=== PATIENT | female | born 1980 | race Caucasian/White ===

== ENCOUNTER 2020-07-05 22:18 | Inpatient (IN) | payer OTHER ==
--- NOTE | 2020-07-05 22:29 | ED Physician Documentation ---
PD HPI ABD PAIN - Stated complaint Stated Complaint: RT SIDE FLANK PX - Chief complaint Chief Complaint: UTI - History obtained from History obtained from: Patient - History of Present Illness Timing - onset: Enter time (15:00), Today Timing - duration: Hours Timing - details: Gradual onset, Constant Pain level now: 4 Quality: Pain Location: RLQ Radiation: Right flank Improved by: Laying still Worsened by: Moving, Palpation Associated symptoms: Nausea. No: Fever, Vomiting, Diarrhea, Constipation Similar symptoms before: Has not had sx before Recently seen: Not recently seen Review of Systems Constitutional: reports: Chills. denies: Fever, Sweats Eyes: reports: Reviewed and negative Ears: reports: Reviewed and negative Nose: reports: Reviewed and negative Throat: reports: Reviewed and negative Cardiac: reports: Reviewed and negative Respiratory: reports: Reviewed and negative GI: reports: Abdominal Pain, Abdominal Swelling (subjective (feels bloated)), Nausea. denies: Vomiting, Constipation, Diarrhea : denies: Dysuria, Frequency, Now EGA Skin: reports: Reviewed and negative Musculoskeletal: reports: Reviewed and negative Neurologic: denies: Headache PD PAST MEDICAL HISTORY - Past Medical History Past Medical History: No - Past Surgical History Past Surgical History: No - Present Medications Home Medications: Ambulatory Orders Medication Instructions Recorded Confirmed Citalopram [CeleXA] 10 mg PO DAILY 07/05/20 07/05/20 - Allergies Allergies/Adverse Reactions: Allergies Allergy/AdvReac Type Severity Reaction Status Date / Time No Known Drug Allergies Allergy Verified 07/05/20 22:30 - Living Situation Living Arrangement: reports: At home - Social History Does the pt smoke?: No PD ED PE NORMAL - Vitals Vital signs reviewed: Yes - General General: Alert and oriented X 3, No acute distress, Well developed/nourished - HEENT HEENT: Moist mucous membranes - Neck Neck: Supple, no meningeal sign - Cardiac Cardiac: RRR, No murmur, No gallop, No rub - Respiratory Respiratory: No respiratory distress, Clear bilaterally - Abdomen Abdomen: Soft, Non distended - Back Back: No CVA TTP - Derm Derm: Normal color, Warm and dry, No rash - Extremities Extremities: No edema PD ED PE EXPANDED - Abdomen Abdomen: Tender to palpation, RLQ Results - Vitals Vitals: Vital Signs - 24 hr 07/05/20 07/06/20 22:27 00:25 Temperature 37.2 C Heart Rate 99 80 Respiratory 17 Rate Blood Pressure 126/83 H 130/88 H O2 Saturation 98 99 Oxygen O2 Source Room air - Labs Labs: Laboratory Tests 07/05/20 07/05/20 07/05/20 22:29 23:09 23:09 WBC 12.3 H RBC 4.76 Hgb 14.7 Hct 44.9 MCV 94.3 MCH 30.9 MCHC 32.7 RDW 12.4 Plt Count 249 MPV 10.2 Neut # (Auto) 9.4 H Lymph # (Auto) 1.8 [place] # (Auto) 0.9 Eos # (Auto) 0.2 Baso # (Auto) 0.0 Absolute Nucleated RBC 0.00 Nucleated RBC % 0.0 Sodium 138 Potassium 3.1 L Chloride 104 Carbon Dioxide 26 Anion Gap 8.0 BUN 10 Creatinine 0.7 Estimated GFR (MDRD) 92 Glucose 102 H Calcium 8.9 Total Bilirubin 0.5 AST 20 ALT 18 Alkaline Phosphatase 74 Total Protein 7.5 Albumin 4.7 Globulin 2.8 Albumin/Globulin Ratio 1.7 Lipase 24 Urine Color YELLOW Urine Clarity CLEAR Urine pH 6.0 Ur Specific [place] 1.025 Urine Protein NEGATIVE Urine Glucose (UA) NEGATIVE Urine Ketones NEGATIVE Urine Occult Blood TRACE-INTA Urine Nitrite NEGATIVE Urine Bilirubin NEGATIVE Urine Urobilinogen 0.2 (NORMAL) Ur Leukocyte Esterase NEGATIVE Ur Microscopic Review NOT INDICATED Urine Culture Comments NOT INDICATED Urine HCG, Qual NEGATIVE - Rads (name of study) CT A/P with IV contrast Radiology: Prelim report reviewed, See rad report PD MEDICAL DECISION MAKING - ED course Complexity details: reviewed results, re-evaluated patient, considered differential, d/w patient Departure - Departure Disposition: [facility] DC/Xfer Clinical Impression: Appendicitis Condition: Good Discharge Date/Time: 07/06/20 02:36
[2020-07-05] MEDS ORDERED: SODIUM CHLORIDE 0.9% 500 ML IV STA (23:03)
[2020-07-05] MEDS ORDERED: SODIUM CHLORIDE 0.9% 1,000 ML IV STA (23:03)
[2020-07-05 23:28] LABS: BASOPHILS % (AUTO) 0.2 %; EOSINOPHILS # (AUTO) 0.2 10^3/uL (0.0-0.7); EOSINOPHILS % (AUTO) 1.3 %; HGB - HEMOGLOBIN 14.7 g/dL (12.0-16.0); LYMPHOCYTES # (AUTO) 1.8 10^3/uL (1.5-3.5); LYMPHOCYTES % (AUTO) 14.4 %; MEAN CORPUSCULAR HEMOGLOBIN 30.9 pg (27.0-31.0); MEAN CORPUSCULAR HGB CONC 32.7 g/dL (32.0-36.0); MEAN CORPUSCULAR VOLUME 94.3 fL (81.0-99.0); MEAN PLATELET VOLUME 10.2 fL (7.9-10.8); MONOCYTES # (AUTO) 0.9 10^3/uL (0.0-1.0); MONOCYTES % (AUTO) 7.2 %; NEUTROPHILS # (AUTO) 9.4 10^3/uL (1.5-6.6); NEUTROPHILS % (AUTO) 76.4 %; PLT - PLATELET COUNT 249 10^3/uL (130-450); RED BLOOD COUNT 4.76 10^6/uL (4.20-5.40); RED CELL DISTRIBUTION WIDTH 12.4 % (12.0-15.0); WHITE BLOOD COUNT 12.3 x10^3/uL (4.8-10.8)
[2020-07-05 23:31] LABS: BILIRUBIN,URINE NEGATIVE (NEGATIVE); GLUCOSE, URINE (UA) NEGATIVE (NEGATIVE); KETONES,URINE (UA) NEGATIVE (NEGATIVE); LEUKOCYTE ESTERASE, URINE NEGATIVE (NEGATIVE); NITRITE,URINE NEGATIVE (NEGATIVE); OCCULT BLOOD,URINE TRACE-INTA (NEGATIVE); PROTEIN,URINE NEGATIVE (NEGATIVE); UROBILINOGEN,URINE 0.2 (NORMAL) E.U./dL (NORMAL)
[2020-07-05 23:33] LABS: CLARITY,URINE CLEAR (CLEAR)
[2020-07-05 23:34] LABS: HCG UR QUAL NEGATIVE
[2020-07-05 23:57] LABS: ALBUMIN 4.7 g/dL (3.2-5.5); ALBUMIN/GLOBULIN RATIO 1.7 (1.0-2.2); BILIRUBIN,TOTAL 0.5 mg/dL (0.2-1.0); CALCIUM 8.9 mg/dL (8.5-10.3); CREATININE 0.7 mg/dL (0.4-1.0); TOTAL PROTEIN 7.5 g/dL (6.7-8.2)
[2020-07-06] MEDS ORDERED: IOVERSOL 320 100 ML VIAL IVP ONE ×2 (00:15→00:43)
[2020-07-06] MEDS ORDERED: ONDANSETRON 4 MG/2 ML VIAL IVP PRN ×3 (01:34→12:00)
[2020-07-06] MEDS ORDERED: SODIUM CHLORIDE FLUSH 0.9% 10 ML SYRINGE IVP PRN (01:34)
[2020-07-06] MEDS ORDERED: ONDANSETRON ODT 4 MG TABLET TL PRN (01:34)
[2020-07-06] MEDS ORDERED: ACETAMINOPHEN 325 MG TABLET PO PRN (01:34)
[2020-07-06] MEDS ORDERED: cefTRIAXone 2 GM in SODIUM CHLORIDE 0.9% MINIBAG 100 ML IV STA (01:40)
[2020-07-06] MEDS: LACTATED RINGERS 1,000 ML IV SCH ×3 (02:51→20:02)
[2020-07-06] MEDS: HYDROmorphone 0.5 MG/0.5 ML SYRINGE IVP PRN ×2 (03:34→08:58)
[2020-07-06] MEDS: metroNIDAZOLE 500 MG/100 ML 500 MG/100 ML BAG IV SCH ×3 (03:34→18:02)
--- NOTE | 2020-07-06 07:34 | CT Report ---
PROCEDURE: Abdomen/Pelvis W INDICATIONS: RLQ pain, tenderness CONTRAST: IV CONTRAST: Optiray 320 ml: 100 PO CONTRAST: *NO PO CONTRAST TECHNIQUE: After the administration of weight appropriate dose of intravenous contrast, 5 mm thick sections acqu ired from the diaphragms to the symphysis. 5 mm thick coronal and sagittal reformats were acquired. For radiation dose reduction, the following was used: automated exposure control, adjustment of mA and/or kV according to patient size. COMPARISON: None. FINDINGS: Image quality: Excellent. ABDOMEN: Lung bases: Lung bases are clear. Heart size is normal. Bilateral breast implants noted. Solid organs: Liver and spleen are normal in size and enhancement. Gallbladder is unremarkable Angel iary system is non dilated. Pancreas enhances normally. No adrenal nodules. Kidneys demonstrate no rmal size and enhancement, without hydronephrosis. Peritoneum and bowel: Bowel loops demonstrate normal wall thickness and caliber. The appendix is en larged and dilated up to 10 mm in diameter with periappendiceal stranding. No evidence for perforatio n or adjacent abscess formation. No free fluid or air. Nodes and vessels: No retroperitoneal or mesenteric adenopathy by size criteria. Aorta and inferior vena cava are normal in size. Miscellaneous: Small fat-containing umbilical hernia without acute inflammation. PELVIS: Genitourinary: Bladder wall thickness is normal. IUD noted in the endometrial cavity. Miscellaneous: No inguinal hernias or adenopathy. Bones: No suspicious bony lesions. No vertebral body compression fractures. IMPRESSION: Acute appendicitis without evidence for perforation or abscess formation. No significant discrepancy with initial interpretation by overnight radiologist. Reviewed by: Selvin Luis MD on 07/06/2020 7:32 AM PDT Approved by: Selvin Luis MD on 07/06/2020 7:32 AM PDT Station ID: [id number]
[2020-07-06] MEDS: SODIUM CHLORIDE FLUSH 0.9% 10 ML SYRINGE IVP SCH ×3 (09:00→23:45)
--- NOTE | 2020-07-06 09:45 | HISTORY & PHYSICAL EXAMINATION ---
Chief Complaint - Chief Complaint Chief Complaint: abdominal pain since 3 yesteray Abdominal Pain HPI - History Obtained From History obtained from: Patient Exam limitations: No limitations - History of Present Illness Severity at the worst: Moderate Pain Quality: Dull, Aching Context-Pain started w/: Rest Timing: Gradual onset Duration: Hours: (18 hours) Improved with: Rest HPI Comment/Other: gradual and progressive abdominal pain and tenderness now localized to the right lower quadrant PMH/PSH - Past Medical History Cardiovascular: positive: None Respiratory: positive: None Neuro: positive: None Endocrine/Autoimmune: positive: None GI: positive: None : positive: None Psych: positive: Depression Musculoskeletal: positive: None Derm: positive: None - Past Surgical History /CLIENT EVALUATOR: positive: Breast implants Social & Family Hx - Social History Does the pt smoke?: No Smoking Status: Former smoker Does the pt drink ETOH?: Yes Does the pt have substance abuse?: No Substance Use and Type: Marijuana Meds/Allgy - Home Medications Home Medications: Ambulatory Orders Medication Instructions Recorded Confirmed Citalopram [CeleXA] 10 mg PO DAILY 07/05/20 07/05/20 - Allergies Allergies/Adverse Reactions: Allergies Allergy/AdvReac Type Severity Reaction Status Date / Time No Known Drug Allergies Allergy Verified 07/05/20 22:30 Review of Systems - Other Findings Other Findings: 10 pt ros as above otherwise unremarkable Exam - Vital Signs Reviewed Vital Signs: Yes Vital Signs: Vital Signs x48h Temp Pulse Pulse Resp BP BP Pulse Ox 07/06/20 08:00 36.7 C 64 20 94/53 L 97 07/06/20 02:43 37.1 C 79 16 128/87 H 98 07/06/20 02:03 37.3 C 84 16 122/85 H 98 07/06/20 01:47 37.2 C 77 18 122/85 H 97 - Physical Exam General Appearance: positive: No acute distress, Alert Eyes Bilateral: positive: Normal inspection, PERRL, EOMI ENT: positive: No signs of dehydration Neck: positive: No JVD Respiratory: positive: No respiratory distress Abdomen: positive: No distention, Tenderness (rlq) Results - Lab Results Fish Bones: 07/05/20 23:09 07/05/20 23:09 Other Lab Results: Lab Results x24hrs 07/05/20 07/05/20 07/05/20 Range/Units 23:09 23:09 22:29 WBC 12.3 H (4.8-10.8) x10^3/uL RBC 4.76 (4.20-5.40) 10^6/uL Hgb 14.7 (12.0-16.0) g/dL Hct 44.9 (37.0-47.0) % MCV 94.3 (81.0-99.0) fL MCH 30.9 (27.0-31.0) pg MCHC 32.7 (32.0-36.0) g/dL RDW 12.4 (12.0-15.0) % Plt Count 249 (130-450) 10^3/uL MPV 10.2 (7.9-10.8) fL Neut # (Auto) 9.4 H (1.5-6.6) 10^3/uL Lymph # (Auto) 1.8 (1.5-3.5) 10^3/uL [place] # (Auto) 0.9 (0.0-1.0) 10^3/uL Eos # (Auto) 0.2 (0.0-0.7) 10^3/uL Baso # (Auto) 0.0 (0.0-0.1) 10^3/uL Absolute Nucleated RBC 0.00 x10^3/uL Nucleated RBC % 0.0 /100WBC Sodium 138 (135-145) mmol/L Potassium 3.1 L (3.5-5.0) mmol/L Chloride 104 (101-111) mmol/L Carbon Dioxide 26 (21-32) mmol/L Anion Gap 8.0 (6-13) BUN 10 (6-20) mg/dL Creatinine 0.7 (0.4-1.0) mg/dL Estimated GFR (MDRD) 92 (>89) Glucose 102 H (70-100) mg/dL Calcium 8.9 (8.5-10.3) mg/dL Total Bilirubin 0.5 (0.2-1.0) mg/dL AST 20 (10-42) IU/L ALT 18 (10-60) IU/L Alkaline Phosphatase 74 (42-121) IU/L Total Protein 7.5 (6.7-8.2) g/dL Albumin 4.7 (3.2-5.5) g/dL Globulin 2.8 (2.1-4.2) g/dL Albumin/Globulin Ratio 1.7 (1.0-2.2) Lipase 24 (22-51) U/L Urine Color YELLOW Urine Clarity CLEAR (CLEAR) Urine pH 6.0 (5.0-7.5) PH Ur Specific [place] 1.025 (1.002-1.030) Urine Protein NEGATIVE (NEGATIVE) mg/dL Urine Glucose (UA) NEGATIVE (NEGATIVE) mg/dL Urine Ketones NEGATIVE (NEGATIVE) mg/dL Urine Occult Blood TRACE-INTA (NEGATIVE) Urine Nitrite NEGATIVE (NEGATIVE) Urine Bilirubin NEGATIVE (NEGATIVE) Urine Urobilinogen 0.2 (NORMAL) (NORMAL) E.U./dL Ur Leukocyte Esterase NEGATIVE (NEGATIVE) Ur Microscopic Review NOT INDICATED Urine Culture Comments NOT INDICATED Urine HCG, Qual NEGATIVE - Diagnostic Imaging Results Diagnostic Imaging Results: positive: Read independently (appendicitis) Impression/Plan - Problem List Problem List: appendicitis. plan lap appendectomy parq held and consent obtained
[2020-07-06] MEDS ORDERED: BUPIVACAINE 0.25%-EPI 1:200000 PF 30 ML VIAL ONE (09:48)
--- NOTE | 2020-07-06 09:48 | ANESTHESIA ---
Pre-Anesthesia VS, & Labs - Diagnosis Appendicitis - Procedure Lap Appy Vital Signs: Temp Pulse Resp BP Pulse Ox 36.7 C 64 20 94/53 L 97 07/06/20 08:00 07/06/20 08:00 07/06/20 08:00 07/06/20 08:00 07/06/20 08:00 Height: 5 ft 5 in Weight (kg): 87.5 kg Body Mass Index: 32.1 BMI Classification: Obese - NPO >8 hours - Is Patient ?: No - Lab Results Current Lab Results: Laboratory Tests 07/05/20 23:09: Sodium 138, Potassium 3.1 L, Chloride 104, Carbon Dioxide 26, Anion Gap 8.0, BUN 10, Creatinine 0.7, Estimated GFR (MDRD) 92, Glucose 102 H, Calcium 8.9, Total Bilirubin 0.5, AST 20, ALT 18, Alkaline Phosphatase 74, Total Protein 7.5, Albumin 4.7, Globulin 2.8, Albumin/Globulin Ratio 1.7, Lipase 24 07/05/20 23:09: WBC 12.3 H, RBC 4.76, Hgb 14.7, Hct 44.9, MCV 94.3, MCH 30.9, MCHC 32.7, RDW 12.4, Plt Count 249, MPV 10.2, Neut # (Auto) 9.4 H, Lymph # (Auto) 1.8, [place] # (Auto) 0.9, Eos # (Auto) 0.2, Baso # (Auto) 0.0, Absolute Nucleated RBC 0.00, Nucleated RBC % 0.0 Fish Bones: 07/05/20 23:09 07/05/20 23:09 Home Medications and Allergies Home Medications: Ambulatory Orders Citalopram [CeleXA] 10 mg PO DAILY 07/05/20 Active Medications Acetaminophen (Tylenol) 650 mg PO Q4HR PRN PRN Reason: Pain 1 to 4 Hydromorphone HCl (Dilaudid Inj Syringe) 0.5 mg IVP Q2H PRN PRN Reason: Pain 8 to 10 Last Admin: 07/06/20 08:58 Dose: 0.5 mg Documented by: Lactated Ringer's (Lr) 1,000 mls @ 100 mls/hr IV .Q10H SUHAS Last Admin: 07/06/20 02:51 Dose: 100 mls/hr Documented by: Metronidazole (Flagyl 500 Mg/100 Ml) 500 mg in 100 mls @ 100 mls/hr IV Q8H SUHAS Last Admin: 07/06/20 09:02 Dose: 100 mls/hr Documented by: Ondansetron HCl (Zofran Odt) 4 mg TL Q6HR PRN PRN Reason: Nausea / Vomiting Ondansetron HCl (Zofran Inj) 4 mg IVP Q6HR PRN PRN Reason: Nausea / Vomiting Last Admin: 07/06/20 05:01 Dose: 4 mg Documented by: Sodium Chloride (Normal Saline Flush 0.9%) 10 ml IVP PRN PRN PRN Reason: NEEDED PER PROVIDER ORDERS Sodium Chloride (Normal Saline Flush 0.9%) 10 ml IVP 0100,0900,1700 [facility] Citalopram [CeleXA] 10 mg PO DAILY 07/05/20 Allergies/Adverse Reactions: Allergies Allergy/AdvReac Type Severity Reaction Status Date / Time No Known Drug Allergies Allergy Verified 07/05/20 22:30 Anes History & Medical History - Anesthetic History Anesthesia Complications: reports: No previous complications Family history of Anesthesia Complications: Denies Family history of Malignant Hyperthermia: Denies - Medical History Cardiovascular: reports: None Pulmonary: reports: None Gastrointestinal: reports: None Urinary: reports: None Neuro: reports: None Musculoskeletal: reports: None Endocrine/Autoimmune: reports: None Blood Disorders: reports: None Skin: reports: None Smoking Status: Former smoker Psychosocial: reports: Depression (Mild) History of Cancer?: No - Surgical History General: Other (Breast augmentation) Eyes Ears Nose Throat (EENT): Tonsil/Adenoidectomy (As child) Gynecologic: section, Breast implants Exam General: Alert Dental: WNL Mouth Opening: Greater than 4 Fingerbreadths Neck Mobility: Normal Mallampati classification: II Thyromental Distance: 4-6 cm Respiratory: Lungs clear, Normal breath sounds, No respiratory distress, No accessory muscle use Cardiovascular: Regular rate, Normal S1, Normal S2, No murmurs Abdomen: Normal bowel sounds, Soft, No tenderness, No hepatospenomegaly, No masses Extremities: No clubbing, No cyanosis, No edema, Normal pulses, No tenderness/swelling Neurological: Normal gait, Normal speech, Strength at 5/5 X4 ext, Normal tone, Sensation intact, Cranial nerves 3-12 NL, Reflexes 2+ Mental/Cognitive Status: Alert/Oriented X3, Normal for patient Cognitive Status: Within normal limits Plan Anesthesia Type: General Consent for Procedure(s) Verified and Reviewed: Yes Code Status: Attempt Resuscitation ASA classification: 1-Healthy patient Is this case an emergency?: Yes (Consent signed)
[2020-07-06] MEDS ORDERED: ePHEDrine 50 MG/ML VIAL IVP PRN (09:49)
[2020-07-06] MEDS ORDERED: METOCLOPRAMIDE 10 MG/2 ML VIAL IVP PRN (09:49)
[2020-07-06] MEDS ORDERED: NALOXONE 0.4 MG/ML VIAL IVP PRN (09:49)
[2020-07-06] MEDS ORDERED: ATROPINE ABBOJECT 1 MG/10 ML SYRINGE IVP PRN (09:49)
[2020-07-06] MEDS ORDERED: HYDROmorphone 0.5 MG/0.5 ML SYRINGE IVP PRN (09:49)
[2020-07-06] MEDS ORDERED: fentaNYL 100 MCG/2 ML VIAL IVP PRN (09:49)
[2020-07-06] MEDS ORDERED: MORPHINE 2 MG/ML CARPUJECT IVP PRN (09:49)
[2020-07-06] MEDS ORDERED: DEXAMETHASONE 4 MG/ML VIAL IVP ONE (09:57)
[2020-07-06] MEDS ORDERED: LIDOCAINE-MPF 2% 5 ML VIAL IM ONE (09:57)
[2020-07-06] MEDS ORDERED: KETAMINE 500 MG/10 ML VIAL IVP ONE (09:57)
[2020-07-06] MEDS ORDERED: MIDAZOLAM 2 MG/2 ML VIAL IVP ONE (09:57)
[2020-07-06] MEDS ORDERED: fentaNYL 100 MCG/2 ML VIAL IVP ONE (09:57)
[2020-07-06] MEDS ORDERED: SUCCINYLCHOLINE 200 MG/10 ML VIAL IVP ONE (09:57)
[2020-07-06] MEDS ORDERED: ONDANSETRON 4 MG/2 ML VIAL IVP ONE (09:57)
[2020-07-06] MEDS ORDERED: PROPOFOL 200 MG/20 ML VIAL IVP ONE (09:57)
[2020-07-06] MEDS ORDERED: LACTATED RINGERS 1,000 ML IV SCH (10:00)
[2020-07-06] MEDS ORDERED: BUPIVACAINE 0.25%-EPI 1:200000 PF 30 ML VIAL SUBQ ONE (11:39)
[2020-07-06] MEDS ORDERED: LACTATED RINGERS 1,000 ML IV ONE ×2 (12:02)
--- NOTE | 2020-07-06 12:08 | OPERATIVE REPORT ---
Operative Report - General Admit Date: 07/06/20 Procedure Date: 07/06/20 Planned Procedure: lap appendectomy Pre-Op Diagnosis: appendicitis Procedure Performed: lap appendectomy Post Op Diagnosis: same - Procedure Note Primary Surgeon: michelle stoll Anesthesia Technique: General ET tube Estimated Blood Loss (mL): 50 Findings: appendictis, suppurative with small amount thin dark, cloudy fluid in pelvis Complications: none
--- NOTE | 2020-07-06 12:32 | ANESTHESIA POST OP EVALUATION ---
Anesthesia Post Eval - Post Anesthesia Eval Vitals: Last Vital Signs Temp 36.2 C L 07/06/20 12:15 Pulse 77 07/06/20 12:28 Resp 16 07/06/20 12:28 BP 113/62 07/06/20 12:28 Pulse Ox 97 07/06/20 12:28 CV Function Including HR & BP: positive: Stable Pain Control: positive: Satisfactory Nausea & Vomiting: positive: Negative Mental Status: positive: Baseline Respiratory Status: Airway Patent Hydration Status: Satisfactory Anesthesia Complications: positive: None (Awake alert and transferred back to [facility])
--- NOTE | 2020-07-06 16:50 | OPERATIVE REPORT ---
DATE OF SERVICE: 07/06/2020 Physician: Kaushik Lennon MD PREOPERATIVE DIAGNOSIS: Appendicitis. POSTOPERATIVE DIAGNOSES 1. Appendicitis, suppurative and with thin, dark fluid within her pelvis. 2. Umbilical hernia. PROCEDURE PERFORMED 1. Laparoscopic appendectomy. 2. Umbilical hernia repair without mesh. SURGEON: Kaushik Lennon MD BRACER: None. ANESTHESIA 1. General endotracheal anesthesia. 2. Local anesthesia with Marcaine. ESTIMATED BLOOD LOSS: 50 mL. DRAINS: None. COMPLICATIONS: None. FINDINGS: As above. SPECIMEN: Appendix. INDICATIONS FOR PROCEDURE: The patient is a healthy 40-year-old. She had developed abdominal discomfort 18 hours prior to surgery. Her discomfort has been progressing and is now localized to the right lower quadrant. White blood cell count is elevated. CT scan reveals and confirms appendicitis. She was taken to surgery. Risks discussed and alternatives discussed. All questions answered and consent obtained. DETAILS OF PROCEDURE: The patient was properly identified, brought to the operating room and placed in supine position. She voided prior to surgery. General endotracheal anesthesia was induced. Sequential compression devices were placed. Under general anesthesia, a nearly 2 cm umbilical hernia was appreciated. She was prepped and draped in a sterile fashion and given preoperative antibiotics. Local anesthetic was given to incision areas. An infraumbilical incision was made. The umbilical skin was excised away from the hernia sac. The fascial defect edge was sharply defined. The peritoneum was opened bluntly and trocar placed without an introducer. CO2 was insufflated to a pressure of 15. There was no evidence of injury from the trocar placement. Under direct vision, a 5 mm trocar was placed suprapubic and a 5 mm trocar was placed in the right upper quadrant. The appendix was retracted anterior. A plane was created between the mesoappendix and the appendix. The appendix was then divided with a small portion of cecum using an Endo-YUDY stapler. The mesoappendix was then divided with an Endo-YUDY vascular load. She had brisk bleeding from the staple line. The stapler was held for 10-15 seconds before firing. The staple line was reinforced with 10 mm clips. She also had mild oozing at the staple line at the appendiceal stump. This was very lightly cauterized. The abdomen was thoroughly irrigated. Hemostasis was then assured. Trocars were removed under direct vision and CO2 evacuated. Fascia at the umbilical hernia was closed transversely with a running 0-Vicryl suture. Subcutaneous tissue was irrigated. The umbilical skin was tacked back down towards the fascia with interrupted 3-0 Vicryl. Subcutaneous tissue was closed with interrupted 3-0 Vicryl suture. Skin was closed with buried interrupted 4-0 Monocryl. Dressings were applied. She tolerated the procedure very well. TD: 07/06/2020 13:59 KEVIN
[2020-07-06] MEDS: HYDROcod/ACETAM 5/325 MG TABLET PO PRN (16:57)
[2020-07-07] MEDS: HYDROcod/ACETAM 5/325 MG TABLET PO PRN ×2 (00:13→04:54)
[2020-07-07] MEDS: metroNIDAZOLE 500 MG/100 ML 500 MG/100 ML BAG IV SCH ×2 (02:58→10:30)
[2020-07-07] MEDS: LACTATED RINGERS 1,000 ML IV SCH (06:01)
[2020-07-07 07:34] VITALS: BP 119/66
[2020-07-07] MEDS: SODIUM CHLORIDE FLUSH 0.9% 10 ML SYRINGE IVP SCH (08:17)
--- NOTE | 2020-07-07 11:28 | PHARMACY PROGRESS NOTE ---
- Best Possible Medication History Admit Date and Time: 07/06/20 0134 Processed by: Nursing As the person ultimately responsible for medication therapy, providers are able to order a medication from an existing home medication list in [facility] via the "Reconcile Routine" prior to Confirmation of that medication by administrative support assoc. Such practice is discouraged except when the physician, in their clinical judgment, deems that a medical need exists for a medication without regard to previous use.
--- NOTE | 2020-07-19 09:48 | Discharge Plan ---
Discharge Plan Problem Reviewed?: Yes Disposition: Home, Self Care Prescriptions: Hydrocodone/Acetaminophen [Hydrocodone-Acetamin 5-325 mg] 1 each PO Q4HR PRN #25 tablet PRN Reason: Pain Ondansetron Odt [Zofran Odt] 4 mg PO Q6H PRN #15 tablet PRN Reason: Nausea / Vomiting Diet: Regular Activity Restrictions: No Restrictions Shower Restrictions: No Driving Restrictions: Yes (not for a few days) No Smoking: If you smoke, Please STOP! Call for help. Follow-up with: Kaushik Lennon MD [Provider Admit Priv/Credential] -
--- NOTE | 2020-07-19 09:50 | DISCHARGE SUMMARY ---
Discharge Summary Admit Date: 07/06/20 Discharge Date: 07/07/20 Discharging Provider: michelle lennon Code Status: Attempt Resuscitation Condition at Discharge: Good - DIAGNOSES Admission Diagnoses: appendicitis Discharge Diagnoses with Status of Each Condition: appendicitis. home in good condition following appendectomy - HPI History of Present Illness: appendicitis. Pain for 1.5 days - HOSPITAL COURSE Hospital Course: Did well following surgery. - ALLERGIES Allergies/Adverse Reactions: Allergies Allergy/AdvReac Type Severity Reaction Status Date / Time No Known Drug Allergies Allergy Verified 07/05/20 22:30 - MEDICATIONS Home Medications: Ambulatory Orders Medication Instructions Recorded Confirmed Citalopram [CeleXA] 10 mg PO DAILY 07/05/20 07/05/20 Hydrocodone/Acetaminophen 1 each PO Q4HR PRN #25 tablet 07/06/20 [Hydrocodone-Acetamin 5-325 mg] Ondansetron Odt [Zofran Odt] 4 mg PO Q6H PRN #15 tablet 07/06/20 - LABS Result Diagrams: 07/05/20 23:09 07/05/20 23:09 - FOLLOW UP Follow Up: Dr Lennon surgery [id number]
== END 2020-07-07 11:11 | disposition home or self-care (01) | DRG 343 ==
LOC: ED 22:18 → MS2 07-06 01:34
PROVIDERS: ADMIT Surgery; ATTEND Surgery
PROC: 0DTJ4ZZ Resection of Appendix, Percutaneous Endoscopic Approach (ICD-10-PCS; principal; 2020-07-06 10:00)
DX: K35.80 Unspecified acute appendicitis (principal); K42.9 Umbilical hernia without obstruction or gangrene; F32.9 Major depressive disorder, single episode, unspecified; E66.9 Obesity, unspecified; Z68.32 Body mass index [BMI] 32.0-32.9, adult; Z79.899 Other long term (current) drug therapy; Z87.891 Personal history of nicotine dependence; Z72.89 Other problems related to lifestyle
CPT/HCPCS: 36415; 74177; 80053; 81003; 81025; 83690; 85025; 99284; 99285; A9270; J0330; J1170; J7120; Q0162; Q9967; 81001; 87086